=== PATIENT | female | born 2005 | race Caucasian/White ===

== ENCOUNTER 2025-04-16 15:28 | Inpatient (IN) | payer OTHER ==
[2025-04-16 15:55] VITALS: BMI 30.4
[2025-04-16] MEDS ORDERED: NICOTINE POLACRILEX 2 MG LOZENGE BC PRN (16:32)
[2025-04-16] MEDS ORDERED: IBUPROFEN 400 MG TABLET (FP) PO PRN (16:32)
[2025-04-16] MEDS ORDERED: NICOTINE POLACRILEX 2 MG GUM BUC PRN (16:32)
[2025-04-16] MEDS ORDERED: IBUPROFEN 600 MG TABLET (FP) PO PRN (16:32)
[2025-04-16] MEDS ORDERED: hydrOXYzine PAMOATE 25 MG CAPSULE (FP) PO PRN (16:32)
[2025-04-16] MEDS ORDERED: LOPERAMIDE HCL 2 MG CAPSULE PO PRN (16:32)
[2025-04-16] MEDS ORDERED: BISMUTH SUBSALICYLATE 524 MG/30 ML PO PRN (16:32)
[2025-04-16] MEDS ORDERED: NALOXONE (NARCAN) HCL 4 MG/0.1 ML SPRAY NS PRN (16:32)
[2025-04-16] MEDS ORDERED: ACETAMINOPHEN 325 MG TABLET (FP) PO PRN (16:32)
[2025-04-16] MEDS ORDERED: MAG HYDROX/AL HYDROX/SIMETH 30 ML UNIT-DOSE CUP PO PRN (16:32)
[2025-04-16] MEDS ORDERED: METHOCARBAMOL 500 MG TABLET PO PRN (16:32)
[2025-04-16] MEDS ORDERED: POLYETHYLENE GLYCOL (HEALTHYLAX) 3350 17 GM PACKET PO PRN (16:32)
[2025-04-16] MEDS ORDERED: BENZONATATE 200 MG CAPSULE PO PRN (16:32)
[2025-04-16] MEDS ORDERED: DICYCLOMINE HCL 10 MG CAPSULE PO PRN (16:32)
[2025-04-16] MEDS ORDERED: MAGNESIUM HYDROX 2400MG/30ML ORAL SUSPENSION 30 ML CUP PO PRN (16:32)
[2025-04-16] MEDS ORDERED: guaiFENesin 600 MG TABLET.ER (FP) PO PRN (16:32)
[2025-04-16] MEDS ORDERED: BENZOCAINE/MENTHOL (CHLORASEPTIC ) LOZENGE MM PRN (16:32)
[2025-04-16] MEDS: ONDANSETRON *ODT* 4 MG TABLET SL PRN (16:54)
[2025-04-16] MEDS ORDERED: ONDANSETRON *ODT* 4 MG TABLET ONE (17:02)
[2025-04-16] MEDS: MELATONIN 5 MG TABLETS PO SCH (22:18)
[2025-04-16] MEDS: THIAMINE 100 MG TABLET PO SCH (22:18)
[2025-04-17] MEDS: PRENATAL VITAMINS W/ FOLIC ACID TABLET (FP) PO SCH (09:59)
[2025-04-17] MEDS: FLU VACC TS2025-26(6MOS UP)/PF 45 MCG/0.5 ML SYRINGE IM ONE (11:57)
[2025-04-17 12:39] LABS: MCHC 32.3 g/dl (32.2-35.5); MEAN CELL VOLUME 87.8 fl (79.4-94.8); MEAN PLT VOLUME 11.6 fl (9.4-12.3); RDW 13.1 % (12.1-16.5)
[2025-04-17 12:49] LABS: GLUCOSE,RANDOM 109 mg/dL (74-106); TOT PROT 6.4 g/dl (6.4-8.2)
[2025-04-17 12:50] LABS: CO2 25 mmol/L (21-32)
[2025-04-17 12:52] LABS: ALK PHOS 83 U/L (40-150)
[2025-04-17 12:55] LABS: CREATININE 0.82 mg/dL (0.55-1.3); SGOT/AST 41 U/L (5-34); SGPT/ALT 60 U/L (0-55)
[2025-04-17] MEDS: NALTREXONE HCL 50 MG TABLET PO SCH (15:01)
[2025-04-18 10:25] VITALS: BP 113/74; PULSE 100; RESP 20; TEMP 97.6
== END 2025-04-18 15:02 | disposition left against medical advice (07) | DRG 770 ==
LOC: YASAS 15:28 → Y6N 17:20
PROVIDERS: ADMIT Neuromusculoskeletal Medicine & OMM; ATTEND Student in an Organized Health Care Education/Training Program
PROC: HZ2ZZZZ Detoxification Services for Substance Abuse Treatment (ICD-10-PCS; principal; 2025-04-16)
DX: F10.230 Alcohol dependence with withdrawal, uncomplicated (principal); F17.290 Nicotine dependence, other tobacco product, uncomplicated; F10.282 Alcohol dependence with alcohol-induced sleep disorder; F90.9 Attention-deficit hyperactivity disorder, unspecified type; J45.30 Mild persistent asthma, uncomplicated; R74.01 Elevation of levels of liver transaminase levels; Z62.810 Personal history of physical and sexual abuse in childhood; Z63.8 Other specified problems related to primary support group
CPT/HCPCS: 36415; 80053; 80307; 85027; 86780; 86803; 90656; 93005; 93010; Q0162